=== PATIENT | female | born 1990 | race Two or more races ===

== ENCOUNTER 2025-01-17 20:39 | Emergency (ER) | payer SELFPAY ==
[~2025-01-17] VITALS: Ht 175.3 cm; Wt 83.9 kg
[2025-01-17 20:48] VITALS: TEMP 98.6
[2025-01-17 21:00] VITALS: BP 123/76; O2SAT 95
[2025-01-17] MEDS ORDERED: ACETAMINOPHEN ES 500 MG TABLET ONE (21:12)
[2025-01-17] MEDS ORDERED: METOCLOPRAMIDE HCL 10 MG/2 ML VIAL ONE (21:12)
[2025-01-17] MEDS: IV NS 0.9% 1,000 ML BAG IV ONE (21:29)
[2025-01-17] MEDS: METOCLOPRAMIDE HCL 10 MG/2 ML VIAL IV ONE (21:33)
[2025-01-17] MEDS: ACETAMINOPHEN ES 500 MG TABLET PO ONE (21:36)
== END 2025-01-17 22:25 | disposition home or self-care (01) ==
LOC: ER 20:43
DX: O99.351 Diseases of the nervous system complicating pregnancy, first trimester (principal); G43.909 Migraine, unspecified, not intractable, without status migrainosus; Z3A.13 13 weeks gestation of pregnancy
CPT/HCPCS: 99284; 96374; 96361; 96375; J1200; J2765; J7030